=== PATIENT | male | born 1960 | race Hispanic/Latino ===

== ENCOUNTER 2017-09-10 11:39 | Outpatient (CLI) | payer OTHER ==
--- NOTE | 2017-09-10 13:03 | XRay Report ---
XRAY CERVICAL SPINE THREE VIEWS: 09/10/17 11:39:00 CLINICAL: Neck pain. FINDINGS: Normal vertebral body height and alignment. Disc space narrowing and large anterior osteophytes at C5-6 and C6-7. Large anterior osteophyte at C4-5 with no disc space narrowing. The facet joints are normal. Normal odontoid and C1. Nuchal ligament ossification. IMPRESSION: Moderate degenerative disc disease, worse at C5-6 and C6-7.
== END 2017-09-10 11:40 | disposition home or self-care (01) ==
LOC: SPVIMAG 11:39
PROVIDERS: ATTEND Family Medicine
DX: M50.323 Other cervical disc degeneration at C6-C7 level (principal); M50.322 Other cervical disc degeneration at C5-C6 level; M67.88 Other specified disorders of synovium and tendon, other site; R42 Dizziness and giddiness
CPT/HCPCS: 72040